=== PATIENT | male | born 1980 | race Caucasian/White ===

== ENCOUNTER 2025-04-17 10:48 | Outpatient (AMB) | payer BC, SELFPAY ==
--- NOTE | 2025-04-17 10:54 | A.OFFPC_ITS ---
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 Patient c/o right arm px and elbow Radiology Therapist Required: No Allergies No Known Allergies Allergy (Verified 04/17/25 10:56) Medication List - Last Reconciled 04/17/25 by RUBEN Forst- No Known Home Meds Tobacco use date assessed: 04/17/25 Dental Screening Dental Screen Date: 04/17/25 Did you have a dental visit in the last 12 months?: Yes Did you have a dental problem in the last 6 months where you did not have access to dental care?: No Was dental information given to patient?: Patient has dentist HPI HPI Comments History of Present Illness Details 45 y/o M with SHAHID with panic attack, MDD , family hx of colon CA Surgery: julio aaron 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 Fhx: MGM cancer; PGF cancer ; Mom cancer behind eye alive; Dad cancer kidney, heart dz [place] x 3, CHF, smoker, etoh ; 2 sisters alive and well; 1/2 brother on dads side in [facility] dying of colon ca Health Maintenance Tdap 2022 Flu declined [facility] [place] exam 2024 GI Here today to [facility] care, for a CPR No records; no PCP recently Pain in bilat writs Aug caught foot ball right wrist pain to tears R elbow pain R hand dominant Weakness; numbness in fingers The more he uses the more it hurts Tried brace and ice that has helped short term Same issue affects the L arm but sx are not current started while working at [employer] > 10 years ago Has pain in bilat shoulders, come and go. MDD/SHAHID: was given meds but never took them. Was active in counseling in past; not interested. Denies SI/HI Strong fhx of cancer - not a lot of details. No etoh or smoking. 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 - Long history of anxiety and depression , untreated due to personal choice - Two children, both diagnosed with auti sm - Non-smoker, occasional past cannabis u se - Avoidance of flu shots; preference aga inst excessive vaccinations - Recent weight loss of 30 pounds; vague nutritional details Health Maintenance - Recommended biannual eye exams given f amily history of ocular cancer - Recommended GI referral for colonoscop y screening given family history of colon cancer - Discussion of tetanus vaccination stat us, uncertain if received within the last 10 years - Dermatology referral suggested due to multiple benign-appearing moles - Suggested flu vaccine, was declined Review of Systems - Musculoskeletal: Reports acute pain in bilateral upper limbs, more pronounced on the right. Numbness, especially in the fingers. - Psychiatric: Reports previous panic at tacks, anxiety, and depression; no current management or treatment. - Neurological: Reports numbness and wea kness in hands. - General: Denies allergies and medicati on use. Physical Exam General: Well developed, well nourished, in no acute distress. Appears stated age. Head: Normocephalic, atraumatic. Eyes: Pupils are equal, round and reactive to light and accommodation. Conjunctivae are clear. Scleras nonicteric bilat. Vision grossly normal. Ears: TMs clear AU, EACS WNL. Ears to be flushed due to feeling blocked. Nose: Patent, without discharge. Unable to see past the forest. Neck: No carotid bruit bilat. Supple, no adenopathy or thyromegaly. Breast: Edu on SBE Lungs: Clear to auscultation bilaterally. No rales, rhonchi or wheeze noted. Good air flow in all rajan. Heart: Regular rate and rhythm. No murmurs, click, rubs or gallops are noted. Abdomen: Bowel sounds present in all quadrants. The abdomen is soft, nontender, with no masses or organomegaly noted. No hernias are noted. : Deferred. Reviewed ADRIANA & recommendations Pulses: Peripheral pulses are equal and palpable bilaterally. Extremities: No clubbing, cyanosis nor edema is noted. HG = strong; no deformity; pain over lateral epidonyle on L and over medial epicondyle on R, parasthesia into ring and pink finky. Neurologic: Gait and station normal. Cranial Nerves 2-12 intact. Motor strength grossly symmetrical and intact. No sensory loss. Balance normal. Skin: No rashes, ulcers, or lesions noted. Turgor is good. Skin color is good. Hair and nails are without abnormalities. Multiple moles noted, all appear benign. Psych: Normal eye contact, affect and mood appropriate, and normal interactions. Patient is alert and appropriate to context. Results Pending Discussion Notes I discussed with the patient the likely diagnosis of ulnar tunnel syndrome and potential involvement of the cubital tunnel based on symptoms and history. Management options including bracing, activity modifications, and referral to a hand specialist were reviewed. I explained that further testing could involve nerve conduction studies to determine the specific area and degree of nerve involvement. I emphasized the importance of following up with appropriate specialists, while also ensuring proper preventative measures are taken for other health concerns raised during the visit. I provided anticipatory guidance on managing anxiety without medication and referred him for psychotherapy. Patient was given time to ask questions. All questions were answered to their satisfaction. Assessment and Plan 1. Bilateral upper limb pain with possib le nerve involvement - Referral to a hand specialist recommen ded. - Activity modification suggested. 2. History of anxiety and depression - declined intervention 3. Health screenings - Colonoscopy advised. - Dermatology referral. - Eye evaluation suggested. 4. Ear lavage today 5. Screening labs Patient Instructions - Follow-up with a hand specialist for f urther evaluation of arm pain. - Schedule colonoscopy as advised. - Make an appointment with a dermatologi st to assess skin moles. - Continue regular eye exams, especially with family history. - Engage with mental health counseling i f desired. - Maintain healthy lifestyle practices, such as weight management. RTO 1 year CPE sooner as needed. Consent Patient was informed and verbally consented to the use of an ambient scribe for clinic note documentation during this visit. An additional 20 minutes was spent addressing the problem(s) noted at todays visit. This includes time spent before the visit reviewing the chart, time spent during the visit, and time spent after the visit on documentation reviewing la boratory results, diagnostic imaging, medications, performing a medically necessary evaluation, counseling on diagnoses, care coordination, ordering appropriate tests, ordering appropriate medications, review of tests performed by other providers, reporting test results with the patient, communication with other healthcare providers. [facility] Medical History (Updated 04/17/25 @ 11:48 by Marlyn Benjamin, [employer]-) Anxiety and depression Headache Right arm pain Surgical History (Updated 04/17/25 @ 11:03 by Alton Damico MA) Hx of cholecystectomy Family History (Updated 04/17/25 @ 11:08 by Alton Damico MA) Mother HTN (hypertension) Cancer Father HTN (hypertension) High cholesterol Diabetes Cancer Maternal Grandmother Cancer Maternal Grandfather Cancer Sister Cancer Brother Cancer Social History (Updated 04/17/25 @ 11:01 by Alton Damico MA) Household Members: Spouse and Children Both parents involved: No Caregiver staying overnight: No Housing: House Are you 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 1. Little interest or pleasure in doing things: not at all 2. Feeling down, depressed, or hopeless: not at all 3. Trouble falling or staying asleep, or sleeping too much: not at all 4. Feeling tired or having little energy: several days 5. Poor appetite or overeating: not at all 6. Feeling bad about yourself - or that you are a failure or have let yourself or your family down: not at all 7. Trouble concentrating on things, such as reading the newspaper or watching television: not at all 8. Moving or speaking so slowly that other people could have noticed. Or the opposite - being so fidgety or restless that you have been moving around a lot more than usual: not at all 9. Thoughts that you would be better off or of hurting yourself in some way: not at all Total score: 1 Depression Screening Interpretation: Negative Depression Screening Done: Yes 60814 - PHQ-9 Billing: Yes Source: Developed by Drs. Garett Ortiz, Moraima Dorado, Aleksander Tamayo and colleagues, with an educational nanda from [email or web address]. Thrive Questionnaire Date Thrive assessed: 04/17/25 I am a: Patient What is your living situation today?: I have a steady place to live Within the past 12 months, did the food you bought not last and you didn't have the money to get more?: Never true Within the past 12 months, did you worry whether your food would run out before you got money to buy more?: Sometimes True Do you have trouble paying for medicines?: I choose not to answer this question Do you have trouble getting transportation to medical appointments?: No Do you have trouble paying your heating and electricity bill?: Yes Do you have trouble taking care of your child, family member or friend?: No Do you have trouble with day-to-day activities such as bathing, preparing meals, shopping, managing finances, etc.?: No Are you currently unemployed and looking for a job?: No Are you interested in more education?: Yes Please select the resources that you would like help with: None Currently or been in a relationship where the following occur: No concerns repo rted THRIVE Score: 2 AUDIT C Alcohol Use Questionnaire (AUDIT-C) 1. How often do you have a drink containing alcohol?: Never 3. How often do you have six or more drinks on one occasion?: Never Total Score: 0 Score Reviewed/Action Taken: Yes SHAHID-7 AMB Questionnaire SHAHID-7 Date SHAHID - 7 assessed: 04/17/25 Feeling nervous, anxious, or on edge: 0 = Not at all Not being able to stop or control worryin = Not at all Worrying too much about different things: 0 = Not at all Trouble relaxin = Not at all Being so restless that it is hard to sit still: 0 = Not at all Becoming easily annoyed or irritable: 0 = Not at all Feeling afraid as if something awful might happen: 0 = Not at all Total SHAHID-7 score (0-4 normal; 5-9 mild; 10-14 moderate; 15-21 severe): 0 Source: Developed by Drs. Garett Ortiz, Moraima Dorado, Aleksander Tamayo and colleagues, with an educational nanda from [employer] SHAHID-7 Assessment Billing SHAHID-7 Assessment Tool: SHAHID-7 Assessment 18312 Physical exam (Primary Care) Vital Signs: Last Vital Signs Temp 97.4 F 04/17/25 10:59 Pulse 66 04/17/25 10:59 Resp 12 04/17/25 10:59 BP 118/70 04/17/25 10:59 Pulse Ox 98 04/17/25 10:59 Oxygen Delivery Method Room Air 04/17/25 10:59 BMI result Body Mass Index 29.4 Tobacco/Smoking Status: Tobacco use Status Tobacco use date assessed 04/17/25 04/17/25 11:00 Patient Tobacco Use Status Never used Tobacco 04/17/25 11:01 e-Cigarette/Vaping Use Never Used 04/17/25 11:01 PHQ-9: PHQ-9 Score PHQ-9: Total score 1 04/17/25 11:00 Depression Screening Interpretation: Negative Thrive Assessment: Date of Thrive Assessment Date Thrive assessed 04/17/25 04/17/25 11:00 Currently or been in a relationship where the following occur: No concerns reported Office Procedures Cerumen Removal From which ear canal was the cerumen removed: bilateral Removal: irrigation Notes: patient tolerated procedure well, no complications and ear canal clear 33476-Uqw Irrigation/Lavage Coding Level of Care Code New Pt Level 2 (81088) New Pt Prev Care 40-64y(21954) Diagnoses Encounter to establish care with new provider Z76.89 Influenza vaccination declined Z28.21 Laboratory exam ordered as part of routine general medical examination Z00.00 Family history of colon cancer Z80.0 Family history of early CAD Z82.49 Numerous moles D22.9 Right hand paresthesia R20.2 Elbow pain, right M25.521 Left hand paresthesia R20.2 Chronic pain of both shoulders M25.511; M25.512; G89.29 Chronicity: chronic Family history of cancer Z80.9 Impacted cerumen, bilateral H61.23 SHAHID (generalized anxiety disorder) F41.1 Mild episode of recurrent major depressive disorder F33.0 Major depression episode severity: mild Encounter for general adult medical examination without abnormal findings Z00.00 CPT Codes Office Procedure - CPT: 13666-Mzr Irrigation/Lavage ([id number]) Additional Codes SHAHID-7 Assessment Billing - SHAHID-7 Assessment Tool: SHAHID-7 Assessment 72238 ([id number]) PHQ-9 - 20074 - PHQ-9 Billing: Yes ([id number]) Assessment & Plan Assessment & Plan (1) Encounter to establish care with new provider: Code(s): Z76.89 - Persons encountering health services in other specified circumstances (2) Influenza vaccination declined: Code(s): Z28.21 - Immunization not carried out because of patient refusal Category: Medical (3) Laboratory exam ordered as part of routine general medical examination: Code(s): Z00.00 - Encounter for general adult medical examination without abnormal findings Category: Medical (4) Family history of colon cancer: Code(s): Z80.0 - Family history of malignant neoplasm of digestive organs Category: Medical (5) Family history of early CAD: Code(s): Z82.49 - Family history of ischemic heart disease and other diseases of the circulatory system Category: Medical (6) Numerous moles: Code(s): D22.9 - Melanocytic nevi, unspecified Category: Medical (7) Right hand paresthesia: Code(s): R20.2 - Paresthesia of skin Category: Medical (8) Elbow pain, right: Code(s): M25.521 - Pain in right elbow Category: Medical (9) Left hand paresthesia: Code(s): R20.2 - Paresthesia of skin Category: Medical (10) Bilateral shoulder pain: Code(s): M25.511 - Pain in right shoulder; M25.512 - Pain in left shoulder Category: Medical Qualifiers: Chronicity: chronic Qualified Code(s): M25.511 - Pain in right shoulder; M25.512 - Pain in left shoulder; G89.29 - Other chronic pain (11) Family history of cancer: Code(s): Z80.9 - Family history of malignant neoplasm, unspecified Category: Medical (12) Impacted cerumen, bilateral: Code(s): H61.23 - Impacted cerumen, bilateral (13) SHAHID (generalized anxiety disorder): Code(s): F41.1 - Generalized anxiety disorder Category: Medical (14) MDD (major depressive disorder), recurrent episode: Code(s): F33.9 - Major depressive disorder, recurrent, unspecified Category: Medical Qualifiers: Major depression episode severity: mild Qualified Code(s): F33.0 - Major depressive disorder, recurrent, mild (15) Encounter for general adult medical examination without abnormal findings: Onset Date: ~04/17/25 Code(s): Z00.00 - Encounter for general adult medical examination without abnormal findings Category: Medical Plan . Orders: Orders Complete Blood Count no Diff Today Z00.00 - Encounter for general adult medical examination without abnormal findings Comprehensive Met. Panel Today Z00.00 - Encounter for general adult medical examination without abnormal findings Vitamin D 25-OH Total Today Z00.00 - Encounter for general adult medical examination without abnormal findings Hemoglobin A1c Today Z00.00 - Encounter for general adult medical examination without abnormal findings Lipid Panel Today Z00.00 - Encounter for general adult medical examination without abnormal findings Microalbumin, Random (w Creat) Today Z00.00 - Encounter for general adult medical examination without abnormal findings Prostate Specific Antigen Scr Today Z00.00 - Encounter for general adult medical examination without abnormal findings TSH reflex Free T4 Today Z00.00 - Encounter for general adult medical examination without abnormal findings Vitamin B12 and Folate Today Z00.00 - Encounter for general adult medical examination without abnormal findings Referrals Gastroenterology Referral Z12.11 - Encounter for screening for malignant neoplasm of colon, Z80.0 - Family history of malignant neoplasm of digestive organs Dermatology Referral D22.9 - Melanocytic nevi, unspecified Hand Surgery Referral M25.521 - Pain in right elbow, R20.2 - Paresthesia of skin Orthopedics Referral M25.511 - Pain in right shoulder, M25.512 - Pain in left shoulder Patient Instructions: Walk-In Care (Urgent Care): We Make it Easy Walk-in for urgent medical issues such as: ? Seasonal Allergies ? Insect Bites ? Cough ? Diarrhea ? Acute Asthma Attacks ? Back, Knee or Joint Pain ? Ear Infection ? Fever without a Rash ? Headaches ? Nausea ? [place] Eye, Rash or Skin Irritation ? Sore Throat ? Sports Physicals ? Vomiting Most insurances are accepted. Patients do not need to be part of the [facility] to seek care at the walk-in clinic. Locations [address], [place] Open Sunday through Sunday 8am-5pm *Hours may vary due to staffing availability. To confirm Walk-In Care hours please call. [address], [place] [address] ? [phone] [facility] in [place] provides services to ages 18 and over. Open Sunday-Sunday: 7 a.m. to 5 p.m. and Sunday: 9 a.m. to 3 p.m.* *Hours may vary due to staffing availability. To confirm Walk-In Care hours in [place], please call [phone]. [address] [place] [address] ? [phone] [facility] in [place] provides services to ages 12 and over. Open Sunday-Sunday: 8 a.m. to 5 p.m. Hours may vary due to staffing availability. To confirm Walk-In Care hours in [place], please call [phone]. LABORATORY SERVICES: [facility] Lab ? Primary Location [address] [place] [address] Sunday through Sunday 6:00 AM ? 5:00 PM Sunday 7:00 AM ? 11:00 AM* [phone] The [facility] Lab is centrally located near the front entrance of the [facility] for easy outpatient access. Convenient parking is provided for outpatients. *Hours may vary due to staffing availability. To confirm Laboratory hours for any location, please call [phone]. Offsite Location For your convenience, we offer offsite laboratory draw stations at the following locations: [address] [place] [address] ? [address], [address] Sunday through Sunday 7:30 AM ? 1:00 PM* [phone] *Hours may vary due to staffing availability. To confirm Laboratory hours for any location, please call [phone]. [place] ? [address] Sunday through Sunday 6:00 AM ? 3:30 PM* Sunday 6:30 AM ? 3 PM* [phone] *Hours may vary due to staffing availability. To confirm Laboratory hours for any location, please call [phone] [place] [address] Sunday through Sunday 7:30 AM ? 4:00 PM* [phone] *Hours may vary due to staffing availability. To confirm Laboratory hours for any location, please call [phone] [place] [address] Sunday through 9:00 AM ? 4:00 PM* *Hours may vary due to staffing availability. To confirm Laboratory hours for any location, please call [phone]. Appointments are not necessary. Walk-ins are welcome. Like all the departments throughout the [facility], our Lab undergoes frequent reviews to ensure the quality and accuracy of test results, and our staff takes special pride in its status as a nationally accredited facility. Patient Portal: [facility] ONE PATIENT. ONE RECORD. BETTER CARE. [facility] has a fully integrated, cutting- edge mobile electronic health information system that has revolutionized the way we care for our patients and manage our organization. This system improves communication and coordination enabling us to provide safe, higher-quality care, and an overall positive experience for staff and patients. Our first priority, as always, is to deliver the highest quality care possible. The system is running in the background supporting that priority. This portal is for all [facility] and [facility] services and practices. If you are experiencing any technical difficulties with enrolling or logging into the Patient Portal please complete the [facility] Patient Portal Technical Support Form. [facility] now offers a new secure on-line interactive tool for patients to review their health information ? ?Patient Portal. This interactive web portal will enable patients and their families to take an active role in their care by providing easy, secure access to their health information via the internet. The Patient Portal provides patients with instant access to their health information, including laboratory results, medications, allergies, demographic information, visit history, and more. In addition to managing their own care, parents and health care proxies with authorized consent will appreciate the ability to access the records of those individuals for whom they provide care. Please note: if you wish to gain access (Proxy) to another patient?s portal, you will be required to come to the Medical Records Department in person at [facility]. Both the patient giving proxy access and the proxy will need to provide photo identification and complete the appropriate authorization. The Patient Portal also allows track their appointments online. The [facility] Patient Portal also saves patients time by allowing them to submit updates to their demographic and contact information prior to their visits. Portal email notifications will also alert patients to any new activity on their portal, such as test results and new appointments. In order to initially enroll in the [facility] Patient Portal, you will need to enter some required information including the following: * your [facility] Medical Record number * your personal home email address * name * date of Please note: In order to enroll in the [facility] Patient Portal, we need to have your email address on file in your electronic medical record. ?The email address needs to be specific for one person (yourself) in order for your Portal enrollment to be successful. ?You can update your email address in person with our Registration staff when you are registering for a hospital visit. ?Otherwise, you will need to come to the Health Information Management (Medical Records) Department at [facility]. ?We are open from Sunday ? Sunday from 7:30 a.m. ? 4:30 p.m. ?You will be required to present a photo id. Once you have successfully enrolled in the Patient Portal, you will receive a one-time user id and password for the Portal, sent to your email address. ?This will allow you to log into the Patient Portal within 99 hrs and reset your own logon id and password, and define personal security questions. ?Once your permanent login and password have been set, you can log into the [facility] Patient Portal at any time via the blue button above or from the Portal Logon button on any page of the [facility] website. [facility] and [facility] encourage all of our patients to enroll in Patient Portal as it presents a valuable opportunity for patients and their families to actively participate in their care and stay healthy Welcome to [facility]. ?We look forward to working with you. Health screenings for men You should visit your health care provider regularly, even if you feel healthy. The purpose of these visits is to: Screen for medical issues Assess your risk for future medical problems Encourage a healthy lifestyle Update vaccinations and other preventive care services Help you get to know your provider in case of an illness Information Even if you feel fine, you should still see your provider for regular checkups. These visits can help you avoid problems in the future. For example, the only way to find out if you have high blood pressure is to have it checked regularly. High blood sugar and high cholesterol level also may not have any symptoms in the early stages. Simple blood tests can check for these conditions. There are specific times when you should see your provider or receive specific health screenings. The [place] Preventive Services Task Force publishes a list of recommended screenings. Below are screening guidelines for men ages 40 to 64. BLOOD PRESSURE SCREENING Have your blood pressure checked at least once every year. Watch for blood pressure screenings in your area. Ask your provider if you can stop in to have your blood pressure checked. Ask your provider if you need your blood pressure checked more often if: You have diabetes, heart disease, kidney problems, or are overweight or have certain other health conditions You have a first-degree relative with high blood pressure You are Black Your blood pressure top number is from 120 to 129 mm Hg, or the bottom number is from 70 to 79 mm Hg If the top number is 130 mm Hg or greater or the bottom number is 80 mm Hg or greater, this is considered stage 1 hypertension. Schedule an appointment with your provider to learn how you can lower your blood pressure. Effects of age on blood pressure CHOLESTEROL SCREENING Cholesterol screening should begin at age 35 for men with no known risk factors for coronary heart disease. Repeat cholesterol screening should take place: Every 5 years for men with normal cholesterol levels More often if changes occur in lifestyle (including weight gain and diet) More often if you have diabetes, heart disease, kidney problems, or certain other conditions COLORECTAL CANCER SCREENING If you are under age 45, talk to your provider about getting screened. You may need to be screened if you have a strong family history of colon cancer or polyps. Screening may also be considered if you have risk factors such as a history of inflammatory bowel disease or polyps. If you are age 45 to 75, you should be screened for colorectal cancer. There are several screening tests available: A stool-based fecal occult blood (gFOBT) or fecal immunochemical test (FIT) every year A stool sDNA test every 1 to 3 years Flexible sigmoidoscopy every 5 years or every 10 years with stool testing FIT done every year CT colonography (virtual colonoscopy) every 5 years Colonoscopy every 10 years You may need a colonoscopy more often if you have risk factors for colorectal cancer, such as: Ulcerative colitis A personal or family history of colorectal cancer A history of growths in your colon called adenomatous polyps DENTAL EXAM Go to the dentist once or twice every year for an exam and cleaning. Your dentist will evaluate if you have a need for more frequent visits. DIABETES SCREENING All adults who do not have risk factors for diabetes should be screened starting at age 35 and repeated every 3 years. If you have other risk factors for diabetes, such as a first degree relative with diabetes, overweight or obesity, high blood pressure, prediabetes, or a history of heart disease, you may be tested more often. If you are overweight and have other risk factors, such as high blood pressure and are planning to become , screening is recommended. EYE EXAM Have an eye exam every 2 to 4 years ages 40 to 54 and every 1 to 3 years ages 55 to 64. Your provider may recommend more frequent eye exams if you have vision problems or glaucoma risk. Have an eye exam that includes an examination of your retina (back of your eye) at least every year if you have diabetes. IMMUNIZATIONS Commonly needed vaccines include: Flu shot: get one every year COVID-19 vaccine: ask your provider what is best for you Tetanus-diphtheria and acellular pertussis (Tdap) vaccine: have as one of your tetanus-diphtheria vaccines if you did not receive it as an adolescent Tetanus-diphtheria: have a booster (or Tdap) every 10 years Varicella vaccine: receive 2 doses if you never had chickenpox or the varicella vaccine and were born in 1979 or after Hepatitis B vaccine: receive 2, 3, or 4 doses, depending on your exact circumstances, if you did not receive these as a child or adolescent, until age 59 Shingles (herpes zoster) vaccine: at or after age 50 Ask your provider if you should receive other immunizations, especially if you have certain medical conditions, such as diabetes or are at increased risk for some diseases such as pneumonia. INFECTIOUS DISEASE SCREENING Screening for hepatitis C: all adults ages 18 to 79 should get a one-time test for hepatitis C. Screening for human immunodeficiency virus (HIV): all people ages 15 to 65 should get a one-time test for HIV. Depending on your lifestyle and medical history, you may need to be screened for infections such as syphilis, chlamydia, and other infections. LUNG CANCER SCREENING You should have an annual screening for lung cancer with low-dose computed tomography (LDCT) if: You are age 50 to 80 years AND You have a 20 pack-year smoking history AND You currently smoke or have quit within the past 15 years OSTEOPOROSIS SCREENING If you are age 50 to 64 and have risk factors for osteoporosis, you should discuss screening with your provider. Risk factors can include long-term steroid use, low body weight, smoking, heavy alcohol use, having a fracture after age 50, or a family history of hip fracture or osteoporosis. Osteoporosis PHYSICAL EXAM All adults should visit their provider from time to time, even if they are healthy. The purpose of these visits is to: Screen for diseases Assess risk of future medical problems Encourage a healthy lifestyle Update vaccinations and other preventive care services Maintain a relationship with a provider in case of an illness Your height, weight, and body mass index (BMI) should be checked at every exam. During your exam, your provider may ask you about: Depression and anxiety Diet and exercise Alcohol and tobacco use Safety, such as use of seat belts and smoke detectors Your medicines and risk for interactions PROSTATE CANCER SCREENING If you're 55 through 69 years old, before having the test, talk to your provider about the pros and cons of having a PSA test. Ask about: Whether screening decreases your chance of dying from prostate cancer. Whether there is any harm from prostate cancer screening, such as side effects from testing or overtreatment of cancer when discovered. Whether you have a higher risk of prostate cancer than others. If you are age 55 or younger, screening is not generally recommended. You should talk with your provider about if you have a higher risk for prostate cancer. Risk factors include: Having a family history of prostate cancer (especially a brother or father) Being If you choose to be tested, the PSA blood test is repeated over time (yearly or less often), though the best frequency is not known. Prostate examinations are no longer routinely done on men with no symptoms. Prostate cancer SKIN EXAM Your provider may check your skin for signs of skin cancer, especially if you're at high risk. People at high risk include those who have had skin cancer before, have close relatives with skin cancer, or have a weakened immune system. TESTICULAR EXAM The [place] Preventive Services Task Force (USPSTF) now recommends against performing testicular self-exams. Doing testicular self-exams has been shown to have little to no benefit.
[2025-04-17 10:59] VITALS: BP 118/70; PULSE 66; RESP 12; TEMP 36.3; O2SAT 98; BMI 29.4
--- OUTSIDE RECORDS SUMMARY | 2025-04-17 12:32 | XMS_ITS ---
Author Name [facility] Organization Unknown Care Team Organization Name Specialty Phone Email Start Date End [facility] Termed, PROVIDER Primary Care 05/30/202202/20
== END 2025-04-17 11:49 | disposition home or self-care (01) ==
LOC: HO.HMCFM 10:49
PROVIDERS: PCP Nurse Practitioner Family; Visit Provider Nurse Practitioner Family
DX: Z00.00 Encounter for general adult medical examination without abnormal findings (principal); M25.521 Pain in right elbow; M25.511 Pain in right shoulder; M25.512 Pain in left shoulder; D22.9 Melanocytic nevi, unspecified; R20.2 Paresthesia of skin; Z76.89 Persons encountering health services in other specified circumstances; G89.29 Other chronic pain; H61.23 Impacted cerumen, bilateral; F41.1 Generalized anxiety disorder; F33.0 Major depressive disorder, recurrent, mild; Z28.21 Immunization not carried out because of patient refusal

== ENCOUNTER → 2025-04-17 10:48 | Outpatient (BNVA) | payer BC, SELFPAY | PROVIDERS: PCP Nurse Practitioner Family; Visit Provider Nurse Practitioner Family | DX: Z00.00 Encounter for general adult medical examination without abnormal findings (principal); M79.602 Pain in left arm; F41.9 Anxiety disorder, unspecified; D22.9 Melanocytic nevi, unspecified; R20.2 Paresthesia of skin; M25.521 Pain in right elbow; M25.511 Pain in right shoulder; M25.512 Pain in left shoulder; G89.29 Other chronic pain; H61.23 Impacted cerumen, bilateral; F41.1 Generalized anxiety disorder; F33.0 Major depressive disorder, recurrent, mild; Z80.9 Family history of malignant neoplasm, unspecified; Z28.21 Immunization not carried out because of patient refusal; Z82.49 Family history of ischemic heart disease and other diseases of the circulatory system; Z76.89 Persons encountering health services in other specified circumstances; Z80.0 Family history of malignant neoplasm of digestive organs | CPT/HCPCS: 69209; 96127 ==

== ENCOUNTER 2025-05-27 08:28 | Outpatient (REF) | payer BC, SELFPAY ==
--- NOTE | ~2025-05-27 | XR_ITS ---
EXAMINATION: X-ray bilateral shoulder CLINICAL INFORMATION: Pain. COMPARISON: None TECHNIQUE: Right shoulder 2 views. Left shoulder 2 views. FINDINGS: Right shoulder: No acute fracture or dislocation. No significant glenohumeral or acromioclavicular arthropathy seen. No suspicious bony lesions. No abnormal soft tissue calcification. Left shoulder: No acute fracture, dislocation or suspicious bony lesion. No significant glenohumeral or acromioclavicular arthropathy seen. No abnormal soft tissue calcification. XR/XR Shoulder Jacob min 2V IMPRESSION: No acute findings Electronically signed by: Alex Camarena MD 05/27/2025 04:16 PM EST
--- OUTSIDE RECORDS SUMMARY | 2025-05-28 08:54 | XMS_ITS | Data Portability ---
Author Organization [facility], [address] Address [address] [place] [address] Assessment No assessment recorded. Plan of Treatment Reminders Order Date Submit Date Provider Last Modified By Organization Details Last Modified Time Details Appointments None recorded. Lab rapid strep group A, throat 2023 024 [email or web address] [facility], [address] [place] [address], [phone], 08:41:22 Referral None recorded. Procedures None recorded. Surgeries None recorded. Imaging None recorded. Medication Orders penicillin V potassium 500 mg tablet 2023 [facility]acy #[id number], [address] [place] [address], [id number], 08:41:22 Patient TargetsNo targets recorded. Patient Instructions Encounter Date Encounter Id Patient Instructions Last Modified By Organization Details Last Modified Time 05/03/2024 [id number] strep throat: care instructions [email or web address] Not available 05/03/2024 08:41:20 Reason for Referral None Reported. Results Created Date Observation Date Name Description Value Unit Range Abnormal Flag Note LastModifiedBy Organization Detail LastModifiedTime 05/03/2005/03/2024 rapid strep group A, throa t Unknown Analyte positi ve Not Available [email or web address] [place], [phone], 05/03/2024 08:27:09 05/03/20 24 05/03/2024 rapid strep group A, throa t Unknown Analyte yes Not Available [facility] [address] [place], [address], 05/03/2024 08:27:09 Result Notes None recorded. Problems Name Problem SNOMED Code Status Onset Date Resolution Date Notes Provider Name and Address Organization Details Recorded Time Streptococcal sore throat 05204694 Active 2023 Sherrie Melendez, JASON [address] , [place], [phone] [facility] - [facility] 08:35:29 Problem Notes None recorded. Procedures Surgical History Date Name Laterality Status Provider Name and Address Organization Details Recorded Time cholecystectomy completed Kristy Han PA - [facility] 05/03/2024 08:26:57 Imaging Results None recorded. Procedure Notes None recorded. Medical Equipment None Reported. Allergies No known drug allergies Medications Name Sig Start Date Stop Date Status Note LastModified by Organization Details LastModified Time penicillin V potassium 500 mg tablet Take 1 tablet twice a day by oral route for 10 days, for strep. 024 active Not Available Not Available Not Avai lable Vitals Date Recorded Body height Body mass index (BMI) Body weight Oxygen saturation Oxygen saturation in Arterial blood by Pulse oximetry Pain severity - 0-10 verbal numeric rating [Score] - Reported Heart rate Respiratory rate Body temperature Systolic And Diastolic Provider Name and Address Organization Details Last Updated DateTime 172.72 cm 28.6 kg/m2 33310.3 7 g 98 % 98 % 8 98 /min 17 /min 98.7 [degF] 121/78 mm[Hg] Kristy Han PA - [facility] 08:24:37 Social History Question Answer Notes LastModified by Organizat ion Details LastModified Time Tobacco Smoking Status Never Smoker Kristy steward PA - [facility] 05/03/2024 08:26:24 Have You Had A Flu Shot This Season? No [email or web address] Information not available 05/03/2024 If No, Would You Like A Flu Shot Today? No [email or web address] Information not available 05/03/2024 What Is Your Relationship Status? Information not available 05/03/2024 Have You Recently Traveled Abroad? No [email or web address] Information not available 05/03/2024 Sex: Unknown Functional Status Question Answer Note LastModified by Organizat ion Details LastModified Time Do you use any illicit or recreational drugs? No [email or web address] Information not available 05/03/2024 Do you or have you ever used any other forms of tobacco or nicotine? No [email or web address] Information not available 05/03/2024 What is your level of alcohol consumption? None [email or web address] Information not available 05/03/2024 Are you currently employed? Yes [email or web address] Information not available 05/03/2024 Mental Status None recorded. Family History Relationship Description Onset Age of this Age Resolved Age Notes LastModified by Organization Details LastModified Time Father Heart disease [email or web address] Not available 05/03 08:26:06 Medical History No medical history recorded. Immunizations Vaccine Type Date Status Note Provider Nam e and Address Organization Details Recorded Time COVID-19, mRNA, LNP-S, PF, 30 mcg/0.3 mL dose 11/23/2020 completed Kristy Han null, [place] - [facility] 05/03/2024 08:25:31 COVID-19, mRNA, LNP-S, PF, 30 mcg/0.3 mL dose 12/24/2020 completed Kristy Han null, PA - [facility] 05/03/2024 08:25:31 COVID-19, mRNA, LNP-S, PF, 30 mcg/0.3 mL dose 01/09/2021 completed Kristy Han null, PA - [facility] 05/03/2024 08:25:31 Tdap 07/15/2012 completed Kristyrhonda Han null, PA - [facility] 05/03/2024 08:25:31 Tdap 07/15/2012 completed Kristy Han null, [place] - [facility] 05/03/2024 08:25:31 Past Encounters Encounter ID Performer Location Encounter Start Date Encounter Closed Date Diagnosis/Indication Diagnosis SNOMED-CT Code Diagnosis ICD10 Code Diagnosis IMO Codes Diagnosis Note [id number] [facility] [address] [address] 09/08/2018 14:14:58 09/08/2018 14:39:[id number] [facility] [address] [place] [phone] 10/30/2015 16:36:51 10/30/2015 17:04:[id number] [place], [place] [address] [facility] [address] [place] [id number] 09/10/2018 10:14:06 09/10/2018 10:41:[id number] [place] [address] [address] [place] [id number] 05/18/2022 19:24:41 05/18/2022 19:48:24 [id number] Sherrieanthony MelendezJASON [address] [facility] [address] [place] [id number] 05/03/2024 08:06:39 05/03/2024 08:47:26 Streptococcal sore throat 22638322 J02.0 Based on your Presentati on, Exam, and Lab Testing you are being diagnosed with strep Pharyngiti s. Your Rapid Strep Test was positive I am going to prescribe you and antibiotic to cover this infection. Please be sure to complete the full course of this antibiotic to prevent antibiotic resistance . It is also important to complete this antibiotic because this infection is what causes Scarlet Fever/Rheu matic Heart Disease. Antibiotic s will typically take 4-5 days to start to work with symptom improvemen t. The following are my other recommenda tions to help with symptoms and is important for this diagnosis: 1. Do not share any food or drinks - strep is passed through direct saliva exchange (NOT IN THE AIR)2. Change your toothbrush in 3-4 days so that you don't re-infect yourself after you complete the antibiotic .3. Take Ibuprofen or Tylenol if you do not have any allergies to these medication s. If you take a blood thinner you should not take NSAIDS like Ibuprofen. These medication will help with the inflammati on in your respirator y tract which should help the cough. (I would alternate between Tylenol 650 mg and your Ibuprofen 600 mg every 4 hours)4. Do not take any Cold Medication s that have a Decongesta nt in it - this will dry out your throat and make the sore throat worse.5. Drinking Hot Tea with honey can help coat and soothe your throat.6. You would be considered contagious for the next 24-48 hours, or until fever resolves. I would be seen again if you develop any of the following symptoms.1 . Fever > 101.02. Stiff neck - where you can't turn your neck3. Trouble swallowing your saliva - drooling4. Swelling of a lymph node in your throat that is painful to touch5. Difficulty breathing6 . Severe Headache Thank you for using [facility] today, please feel free to contact our office if you have any questions or concerns. Health Concerns Section Related Observation LastModified by Organization Detai ls LastModified Time None Recorded Concern Status LastModified by Organization Details LastModified Time None Recorded Advance Directives Directive None Recorded Payers Insurance Date Sequence Insurance Name Policy Number Policy Iglesias Covered Member ID Iglesias Member ID Guarantor Name 05/04/2024 1 LAURIE (PPO) Pasquale Chavez [id number] Pasquale Chavez 05/03/2024 1 [facility] [employer] [facility] (MEDICAID HMO) Pasquale Chavez [id number] Pasquale Chavez Notes Date Note Type Note Provider Name and Address Organization Details Recorded Time 05/03/2024 text/html Sore throatRepor stephanie by PatientSore ThroatFor associated symptoms, patient reportssore throatbut reportsno cough,no sputum production,no shortness of breath,no wheezing,no sinus pain,no vomiting,no nausea, andno hoarseness. For context, patient reportssick contactbut reportsno foreign travelandnon-smoker. For modifying factors, patient reportsexposed to strep non household. For source of patient information, patient reportsinformation obtained from patientandpatient arrived at urgent care ambulatory. For location, patient reportsthroat. For severity, patient reportsmoderate. For quality, patient reportshurts to swallow. For onset/timing, patient reports3 days. Sherrie Melendez NP [address] [place], [address], [place] - [facility] 05/03/2024 10:43:17
== END 2025-05-27 08:29 | disposition home or self-care (01) ==
LOC: HO.HOSX 08:28
PROVIDERS: Visit Provider Orthopaedic Surgery
DX: M25.511 Pain in right shoulder (principal); M25.512 Pain in left shoulder; M54.2 Cervicalgia; R20.2 Paresthesia of skin
CPT/HCPCS: 73030

== ENCOUNTER 2025-05-27 09:55 | Outpatient (AMB) | payer BC, SELFPAY ==
--- NOTE | 2025-05-27 10:10 | A.OFFVIS_ITS ---
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 Also reports intermittent discomfort in both of his shoulders. He denies any weakness in his shoulders. He reports weakness in both of his hands. His symptoms have gotten worse for the last 10 years. He has failed the last 6 weeks of conservative treatment which has included Tylenol, anti-inflammatory medicines, physical therapy exercises and a home exercise program. Allergies No Known Allergies Allergy (Verified 05/27/25 10:23) Medication List - Last Reconciled 05/27/25 by Albaro Serrano MD No Known Home Meds [facility] Medical History (Updated 05/27/25 @ 10:32 by Albaro Serrano MD) Anxiety and depression Headache Right arm pain Surgical History (Updated 04/17/25 @ 11:03 by Alton Damico MA) Hx of cholecystectomy Family History (Updated 04/17/25 @ 11:08 by Alton Damico MA) Mother HTN (hypertension) Cancer Father HTN (hypertension) High cholesterol Diabetes Cancer Maternal Grandmother Cancer Maternal Grandfather Cancer Sister Cancer Brother Cancer Social History Household Members: Spouse and Children Both parents involved: No Caregiver staying overnight: No Housing: House Are you a primary acute care clinical nurse specialist to a significant other at home: Yes Do you presently have visiting nurse or other home services: No 75 years or older and lives alone: No Alcohol intake: never Patient Tobacco Use Status: Never used Tobacco e-Cigarette/Vaping Use: Never Used Second Hand Smoke Exposure: No service: No Current occupational status: employed 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 Current occupational exposures/hazards: No Cognitive needs: No Hearing needs: No Vision needs: No Physical Exam Const Other: Well-nourished well-developed very friendly male awake alert and oriented x3 in no acute distress Neck Other: Cervical spine examination shows bilateral paraspinal muscle tenderness, pain with range of motion, positive Spurling's test Extrem Other: Bilateral shoulder examination shows forward flexion to 170 degrees, external rotation is 60 degrees, internal rotation to level L2, positive impingement s igns, 5/5 strength with supraspinatus testing, no instability Bilateral wrist examination shows positive Tinel's test over his carpal tunnels, mild thenar muscle wasting, decreased sensation to light touch along his median and ulnar nerve distributions Results Reviewed Results Reviewed: X-rays of the patient's bilateral shoulders taken today show moderate to severe acromioclavicular joint narrowing, type 2 acromion, no acute bony abnormalities Assessment & Plan Assessment & Plan (1) Neck pain: Code(s): M54.2 - Cervicalgia Category: Medical (2) Right hand paresthesia: Code(s): R20.2 - Paresthesia of skin Category: Medical (3) Left hand paresthesia: Code(s): R20.2 - Paresthesia of skin Category: Medical Plan Mr. Chavez presents with progressively worsening neck pain which radiates into both of his arms possibly due to cervical stenosis or a disc herniation. Thus, I will send the patient for an MRI of his cervical spine for further evaluation. The patient may also have symptoms due to cubital tunnel syndrome and carpal tunnel syndrome. Thus, I will send him for EMG evaluation of both of his upper extremities. I will contact him by phone once the results are available. Feel free to call me at any time should questions regarding his orthopedic management arise. Thank you very much for asking me to see this very friendly gentleman. I spent 20 minutes in reviewing the patient's records and imaging studies, seeing the patient and documenting in the medical record. Orders: Orders MR cervical spine wo con 05/28/25 M54.2 - Cervicalgia NE nerve conduction velocity Today R20.2 - Paresthesia of skin XR Shoulder Jacob min 2V Today M25.511 - Pain in right shoulder, M25.512 - Pain in left shoulder NE electromyogram (EMG) 05/28/25 R20.2 - Paresthesia of skin Coding Level of Care Code New Pt Level 3 (95232) Complex EM visit Add On G2211 Diagnoses Neck pain M54.2 Right hand paresthesia R20.2 Left hand paresthesia R20.2
== END 2025-05-27 10:30 | disposition home or self-care (01) ==
LOC: HO.HOS 09:56
PROVIDERS: PCP Nurse Practitioner Family; Visit Provider Orthopaedic Surgery
DX: M54.2 Cervicalgia (principal); R20.2 Paresthesia of skin
CPT/HCPCS: 99203

== ENCOUNTER → 2025-05-27 09:58 | Outpatient (BNV) | payer BC, SELFPAY | PROVIDERS: Visit Provider Radiology Diagnostic Ultrasound | DX: M25.511 Pain in right shoulder (principal); M25.512 Pain in left shoulder | CPT/HCPCS: 73030 ==